=== PATIENT | female | born 1940 | race Caucasian/White ===

== ENCOUNTER 2017-07-29 12:50 | Emergency (ER) | payer MEDICARE, OTHER ==
--- NOTE | 2017-07-29 13:42 | XRAY Report ---
Procedure Date: 07/29/2017 Accession Number: [id number] / [id number] Procedure: XR - Shoulder 3 View LT CPT Code: FULL RESULT: EXAM: LEFT SHOULDER RADIOGRAPHY, 3 VIEWS EXAM DATE: 07/29/2017 01:30 PM. CLINICAL HISTORY: 77-year-old female post fall injuring left shoulder. Shoulder pain. COMPARISON: None. TECHNIQUE: AP, Grashey and Y views. FINDINGS: Bones: Comminuted fracture left humeral head and neck with displaced lateral fracture and displaced and angulated fracture of the left humeral neck. Osseous structures otherwise intact. Joints: Glenohumeral joint appears normal. Mild elevation of the distal clavicle in the AC joint region. Joint space otherwise normal. Soft tissues: The visualized hemithorax is unremarkable. No soft tissue swelling. IMPRESSION: Comminuted displaced of the left humeral head and neck. Slight widening of the left AC joint with mild elevation of the distal left clavicle suggesting possible ligamentous disruption. RADIA
--- NOTE | 2017-07-29 14:45 | ED Physician Documentation ---
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) Timing - details: Abrupt onset, Still present Associated symptoms: No: Weakness, Numbness Contributing factors: No: Anticoagulated, Prior ortho surgery Similar symptoms before: Has not had sx before Recently seen: Not recently seen Review of Systems Cardiac: denies: Chest pain / pressure GI: denies: Abdominal Pain Musculoskeletal: reports: Extremity pain (left shoulder) Neurologic: denies: Focal weakness, Numbness, Confused, Altered mental status, Headache, Head injury PD PAST MEDICAL HISTORY - Past Medical History Endocrine/Autoimmune: None Musculoskeletal: None - Present Medications Home Medications: Ambulatory Orders Medication Instructions Recorded Confirmed Methocarbamol [Robaxin] 500 mg PO Q6H PRN #25 tablet 07/29/17 Tramadol HCl 50 mg PO Q6H PRN #20 tablet 07/29/17 - Allergies Allergies/Adverse Reactions: Allergies Allergy/AdvReac Type Severity Reaction Status Date / Time No Known Drug Allergies Allergy Verified 07/29/17 12:59 PD ED PE NORMAL - Vitals Vital signs reviewed: Yes - General General: Alert and oriented X 3, Well developed/nourished, Other (appears uncomfortable, with guarding motion of right arm to her side. ) - HEENT HEENT: Atraumatic - Cardiac Cardiac: RRR, No murmur - Respiratory Respiratory: Clear bilaterally - Abdomen Abdomen: Soft, Non tender - Derm Derm: Normal color, Warm and dry - Extremities Extremities: Other (left shoulder with tenderness proximal humerus. No bruising but some swelling in that area. ) - Neuro Neuro: No motor deficit, No sensory deficit (at wrist/fingers. ) Results - Vitals Vitals: Oxygen O2 Source Room air - Rads (name of study) left shoulder Radiology: Prelim report reviewed, EMP read contemporaneously (proximal humeral fracture with secondary fracture of greater tubercle.) PD MEDICAL DECISION MAKING - ED course Complexity details: reviewed results, considered differential, d/w patient - Sepsis Event Vital Signs: Oxygen O2 Source Room air Departure - Departure Disposition: 01 Home, Self Care Clinical Impression: Accidental fall Qualifiers: Encounter type: initial encounter Qualified Code(s): W19.XXXA - Unspecified fall, initial encounter Closed fracture of left proximal humerus Qualifiers: Encounter type: initial encounter Fracture morphology: other fracture Fracture alignment: displaced Qualified Code(s): S42.292A - Other displaced fracture of upper end of left humerus, initial encounter for closed fracture Condition: Stable Record reviewed to determine appropriate education?: Yes Instructions: ED Fx Upper Ext Follow-Up: Jonathan Waggoner MD [Provider Admit Priv/Credential] - Prescriptions: Methocarbamol [Robaxin] 500 mg PO Q6H PRN #25 tablet PRN Reason: Spasms Tramadol HCl 50 mg PO Q6H PRN #20 tablet PRN Reason: Pain Comments: Use Aleve 2 tablets twice daily for the next 7-10 days. Also take Tylenol 650 mg 3-4 times a day for the next 7-10 days as well. These can be both used for the pain. Use the sling for the shoulder to keep it rested and in position. Call orthopedic office tomorrow for an appointment about a week from now for follow-up. They will want to check the alignment of it at that point and see if it is in better position to allow just continued use of the sling for healing. Occasionally this may need surgery for repair but typically not. You can add methocarbamol muscle relaxant for spasms of the shoulder as that will contribute to the pain. If you do need stronger medicine, you can try tramadol which is a narcotic-like medication but not truly narcotic. Discharge Date/Time: 07/29/17 16:12
[2017-07-29] MEDS ORDERED: ACETAMINOPHEN 325 MG TABLET PO STA (15:06)
[2017-07-29] MEDS ORDERED: METHOCARBAMOL 500 MG TABLET PO STA (15:06)
[2017-07-29 15:39] VITALS: BP 155/88
== END 2017-07-29 16:12 | disposition home or self-care (01) ==
LOC: ED 12:50
DX: S42.292A Other displaced fracture of upper end of left humerus, initial encounter for closed fracture (principal); W01.0XXA Fall on same level from slipping, tripping and stumbling without subsequent striking against object, initial encounter; Y93.K1 Activity, walking an animal; Y92.488 Other paved roadways as the place of occurrence of the external cause
CPT/HCPCS: 73030; 99283; A9270

== ENCOUNTER 2019-10-26 14:02 | Emergency (ER) | payer MEDICARE ==
--- NOTE | 2019-10-26 15:57 | ED Physician Documentation ---
History of Present Illness - Stated complaint Stated Complaint: BACK PAIN - Chief complaint Chief Complaint: Back Pain - History obtained from History obtained from: Patient - History of Present Illness Timing: Prior to arrival, How many weeks ago (3) - Additonal information Additional information: 79-year-old female presents to the emergency department for evaluation of right sided posterior thoracic back pain. Pain began about 3 weeks ago when she picked up her 60 pound dog. Initially it was quite painful but she was able to move through it. She reports that she is also recently been climbing ladders and stretching to pick [employer]. She has pain that typically radiates from the right posterior trapezius area down the back. She has had no cough or fevers. No weight loss. No dyspnea. She has been taking aspirin which helps for pain. She has not seen a primary care doctor. She is worried that she may have a rib fracture though she denies any falls or trauma. Review of Systems Constitutional: reports: Reviewed and negative Eyes: reports: Reviewed and negative Ears: reports: Reviewed and negative Nose: reports: Reviewed and negative Throat: reports: Reviewed and negative Cardiac: reports: Reviewed and negative Respiratory: reports: Reviewed and negative GI: reports: Reviewed and negative Skin: reports: Reviewed and negative Musculoskeletal: reports: Back pain. denies: Extremity pain, Joint pain, Extremity swelling, Joint swelling, Pain with weight bearing Neurologic: denies: Generalized weakness, Focal weakness Psychiatric: denies: Depressed Endocrine: denies: Polydypsia PD PAST MEDICAL HISTORY - Past Medical History Endocrine/Autoimmune: None Musculoskeletal: None - Present Medications Home Medications: Ambulatory Orders Medication Instructions Recorded Confirmed Tramadol HCl 50 mg PO Q6H PRN #20 tablet 07/29/17 methocarbamoL [Robaxin] 500 mg PO Q6H PRN #25 tablet 07/29/17 Acetaminophen [Tylenol] 650 mg PO Q6H PRN #30 tab 10/26/19 Methocarbamol [Robaxin-750] 750 mg PO BID #15 tablet 10/26/19 - Allergies Allergies/Adverse Reactions: Allergies Allergy/AdvReac Type Severity Reaction Status Date / Time No Known Drug Allergies Allergy Verified 10/26/19 14:14 PD ED PE EXPANDED - General General: Alert, No acute distress, Well developed/nourished - Cardiac Cardiac: Regular Rate, Radial strong equal, Cap refill < 2 sec - Respiratory Respiratory: Clear to ausultation davian. No: Distress, Labored - Abdomen Abdomen: Normal Bowel sounds. No: Tender to palpation - Back Back: Soft tissue tenderness, Limited ROM, Other (tenderness right trapexius muscle body that extends from just abive the scapula to the lumbar area. NO midlien spinous process tenderness. Reduced ROM secodnary to pain). No: Vertebral tenderness, CVA TTP right, CVA TTP left - Derm Derm: Normal color, Warm and dry - Neuro Neuro: Alert and Oriented X 3. No: Confused, Disoriented - GCS Eye Opening: Spontaneous Motor: Obeys Commands Verbal: Oriented Total: 15 Results - Vitals Vitals: Vital Signs - 24 hr 10/26/19 14:08 Heart Rate 74 Respiratory 17 Rate Blood Pressure 148/92 H O2 Saturation 98 Oxygen O2 Source Room air - Rads (name of study) cxr Radiology: Final report received (Subtle left basilar radiopacity suspicious for aspiration/infection. Short interval follow-up is recommended to ensure resolution.) rib xray Radiology: Final report received (No displaced rib fracture is visualized. No bony abnormalities) PD MEDICAL DECISION MAKING - ED course Complexity details: reviewed results, re-evaluated patient, considered differential, d/w patient ED course: 79-year-old female presents to the emergency department for evaluation of right posterior thoracic back pain. This began about 3 weeks ago after she picked up her heavy dog but was also exacerbated by climbing ladders and picking figs. She has no midline spinous process tenderness. My suspicion for an occult fracture in the thoracic spine is lower. However she is exceedingly concerned that based on the location of the pain that she could have a rib fracture. - Rib series does not show any acute fracture. A chest x-ray does suggest a possible early left lower pneumonia/aspiration event. I discussed the chest x- ray findings with the patient. She denies any aspiration events cough congestion or fever. I did offer her a trial of antibiotics for possible early pneumonia but she declined them at this time. She states that she will follow- up with her primary doctor for repeat imaging in 2 to 3 weeks. She was told that if her symptoms change, she develops a cough or fever she is to return to the ER for second look. - I will recommend short course of methocarbamol as a muscle relaxer and Tylenol for analgesia. Departure - Departure Disposition: 01 Home, Self Care Clinical Impression: Strain of right trapezius muscle Qualifiers: Encounter type: initial encounter Qualified Code(s): S46.811A - Strain of other muscles, fascia and tendons at shoulder and upper arm level, right arm, initial encounter Condition: Stable Record reviewed to determine appropriate education?: Yes Instructions: ED Spasm Back No Trauma Follow-Up: Arden German MD [Primary Care Provider] - Prescriptions: Methocarbamol [Robaxin-750] 750 mg PO BID #15 tablet Acetaminophen [Tylenol] 650 mg PO Q6H PRN #30 tab PRN Reason: Pain Comments: Rebeca it looks like you pulled your trapezius muscle on the right side of your back. I would like you to take the Tylenol as needed for pain. I also prescribed a small amount of a muscle relaxer. Please be cautious using this it may make you sleepy. The chest x-ray did suggest that you may have a mild early pneumonia in your left lower lung. I would like you to discuss this with your primary care doctor. You should have a repeat x-ray done in 2 to 3 weeks to ensure that this has cleared. You declined antibiotics today however if you develop a cough, have fevers or difficulty breathing please return to [facility]
--- NOTE | 2019-10-26 16:53 | XRAY Report ---
PROCEDURE: Chest 2 View X-Ray INDICATIONS: cough TECHNIQUE: 2 view(s) of the chest. COMPARISON: None. FINDINGS: Surgical changes and devices: None. Lungs and pleura: There may be subtle airspace opacities at the lingular base versus overlapping morgan st and bone shadows. The lungs are otherwise clear. No pleural effusion or pneumothorax. Mediastinum: Mediastinal contours are normal. Heart size is normal. Bones and chest wall: No suspicious bony abnormalities. Soft tissues appear unremarkable. IMPRESSION: Subtle left basilar radiopacity suspicious for aspiration/infection. Short interval foll ow-up is recommended to ensure resolution. Reviewed by: Kasey Aguero MD on 10/26/2019 4:52 PM PDT Approved by: Kasey Aguero MD on 10/26/2019 4:52 PM PDT Station ID: [id number]
--- NOTE | 2019-10-26 16:54 | XRAY Report ---
PROCEDURE: Ribs 2 View RT INDICATIONS: posterior rib pain; r/o fracture TECHNIQUE: 3 views of the right ribs were acquired. COMPARISON: None FINDINGS: Surgical changes and devices: None. Bones and chest wall: No fractures or dislocations. No suspicious bony lesions. Overlying soft tis sues appear unremarkable. Lungs and pleura: The visualized lung appears clear. No pleural effusions or pneumothorax are visib le. IMPRESSION: No displaced rib fractures visualized. No bony abnormalities. Reviewed by: Kasey Aguero MD on 10/26/2019 4:53 PM PDT Approved by: Kasey Aguero MD on 10/26/2019 4:53 PM PDT Station ID: [id number]
[2019-10-26 17:12] VITALS: BP 156/93
== END 2019-10-26 17:21 | disposition home or self-care (01) ==
LOC: ED 14:02
DX: S46.811A Strain of other muscles, fascia and tendons at shoulder and upper arm level, right arm, initial encounter (principal); X50.0XXA Overexertion from strenuous movement or load, initial encounter; X50.1XXA Overexertion from prolonged static or awkward postures, initial encounter
CPT/HCPCS: 71046; 99283; 99284

== ENCOUNTER 2020-10-19 13:12 | Emergency (ER) | payer MEDICARE ==
[2020-10-19 13:19] VITALS: BP 129/97
--- NOTE | 2020-10-19 13:52 | ED Physician Documentation ---
PD HPI SKIN - Stated complaint Stated Complaint: R HAND ABCESS - Chief complaint Chief Complaint: Wound - History obtained from History obtained from: Patient - History of Present Illness Timing - onset: How many weeks ago (2) Timing - duration: Weeks (2) Timing - details: Gradual onset, Still present Location: RUE (index finger) Quality / character: Painful, Discolored, Raised, Swelling. No: Draining Associated symptoms: No: Fever Contributing factors: Other (thorn to finger 2 months ago) Similar symptoms before: Diagnosis (abcess) Recently seen: Not recently seen - Additional information Additional information: Previously well 80-year-old female on no medications comes to the emergency department today with a swelling to her right index finger that has been present for almost 2 weeks and was preceded by a minor injury to her finger while gardening where she brushed up against a thorn. She states she cleaned the area out that she did not have retained foreign in the area and this happened about 2 months ago. She developed some soreness and then the swelling abruptly happened about 2 weeks ago. She feels that there is some fluid underneath the skin and she has a bit of pain if she tries to flex and extend the finger. She is not had fever with this she has not had anything drained out of the finger. She states that the prior case she had a similar situation and when she soaked it in Epson salts it broke open and resolved. Review of Systems Constitutional: denies: Fever Eyes: denies: Decreased vision Ears: denies: Ear pain Nose: denies: Congestion Throat: denies: Sore throat Respiratory: denies: Cough GI: denies: Vomiting Skin: reports: Lesions Musculoskeletal: reports: Extremity pain. 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 HEENT: None Psych: None Musculoskeletal: None, Other Derm: None - Past Surgical History Past Surgical History: No - Present Medications Home Medications: Ambulatory Orders Medication Instructions Recorded Confirmed Sulfamethox/Trimeth 800/160 1 each PO BID #14 tablet 10/19/20 [Bactrim Ds] - Allergies Allergies/Adverse Reactions: Allergies Allergy/AdvReac Type Severity Reaction Status Date / Time No Known Drug Allergies Allergy Verified 10/26/19 14:14 - Social History Does the pt smoke?: No Smoking Status: Never smoker Does the pt drink ETOH?: No Does the pt have substance abuse?: No - Immunizations Immunizations are current?: Yes PD ED PE NORMAL - Vitals Vital signs reviewed: Yes (hypertensive ) - General General: Alert and oriented X 3, No acute distress, Well developed/nourished - HEENT HEENT: Atraumatic, PERRL, EOMI - Respiratory Respiratory: No respiratory distress - Derm Derm: Normal color, Warm and dry, No rash, Other (swelling, tenderness and bruising to the volar proximal 2nd digit right hand ) - Extremities Extremities: Other (To the volar surface of the proximal second phalange of the right hand there is a swelling approximately 2 cm round and a centimeter tall that is fluctuant in the middle there is no surrounding erythema there is the violaceous hue of a bruise) - Neuro Neuro: Alert and oriented X 3, certified first assistant 2-12 intact, No motor deficit, No sensory deficit, Normal speech Eye Opening: Spontaneous Motor: Obeys Commands Verbal: Oriented GCS Score: 15 - Psych Psych: Normal mood, Normal affect Results - Vitals Vitals: Vital Signs - 24 hr 10/19/20 13:14 Temperature 36.5 C Heart Rate 64 Respiratory 16 Rate Blood Pressure 129/97 H O2 Saturation 100 Oxygen O2 Source Room air Procedures - Abscess I&D (location) right index Preparation: Chlorhexadine Incision: Needle aspiration, Purulent drainage, Culture obtained Other: Pt tolerated well, Dressing applied, Antibiotic prescribed PD MEDICAL DECISION MAKING - ED course Complexity details: considered differential, d/w patient ED course: 80-year-old female with a abscess to the right index finger volar surface presented with what appeared to be bruised tissue with some fluctuance to the center of it. There was no erythema surrounding it and this ended up being an abscess. I was able to aspirate about 4 cc of pus out of it. This was cultured the swelling deflated completely. Patient tolerated this well. We will place her on some antibiotic with culture pending and she is instructed to use a warm compress 2-3 times per day Departure - Departure Disposition: 01 Home, Self Care Clinical Impression: Abscess of right index finger Condition: Stable Instructions: ED Abscess IandD Follow-Up: Arden German MD [Primary Care Provider] - Prescriptions: Sulfamethox/Trimeth 800/160 [Bactrim Ds] 1 each PO BID #14 tablet Comments: I ring, a culture of the fluid we obtained from your finger is pending and should be available in 2 to 3 days. If we find that the organism in the abscess is resistant to the antibiotic we put you on we will call you with a new antib iotic. Use a warm compress to the area 2-3 times per day for about 10 minutes each and encourage any drainage.
[2020-10-19] MEDS ORDERED: BACITRACIN ZINC OINT 1 PACKET TOP STA (14:05)
== END 2020-10-19 14:14 | disposition home or self-care (01) ==
LOC: ED 13:12
DX: L02.511 Cutaneous abscess of right hand (principal)
CPT/HCPCS: 10160; 87070; 87205; 99282; 99284; A9270

== ENCOUNTER 2020-10-26 14:31 | Emergency (ER) | payer MEDICARE ==
--- NOTE | 2020-10-26 15:23 | ED Physician Documentation ---
PD HPI UPPER EXT INJURY - Stated complaint Stated Complaint: RT INDEX FINGER WOUND - Chief complaint Chief Complaint: Ext Problem - History obtained from History obtained from: Patient - Additonal information Additional information: 1 year ago had thorn injury to R index finger. Increased swelling last week with needle aspiration done and rx bactrim. No growth from culture. 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 HEENT: None Psych: None Musculoskeletal: None, Other Derm: None - Past Surgical History Past Surgical History: No - Present Medications Home Medications: Ambulatory Orders Medication Instructions Recorded Confirmed Sulfamethox/Trimeth 800/160 1 each PO BID #14 tablet 10/19/20 [Bactrim Ds] cephALEXin [Keflex] 500 mg PO Q6H #28 cap 10/26/20 - Allergies Allergies/Adverse Reactions: Allergies Allergy/AdvReac Type Severity Reaction Status Date / Time No Known Drug Allergies Allergy Verified 10/26/20 14:45 - Social History Does the pt smoke?: No Smoking Status: Never smoker Does the pt drink ETOH?: No Does the pt have substance abuse?: No - Immunizations Immunizations are current?: Yes PD ED PE NORMAL - Vitals Vital signs reviewed: Yes - General General: Alert and oriented X 3, No acute distress - HEENT HEENT: PERRL, EOMI - Neck Neck: No bony TTP - Extremities Extremities: Other (There is large pointed abscess encompassing most of the palmar surface of the proximal phalanx of the right index finger with mild surrounding cellulitis. That said there is no evidence of flexor tenosynovitis, no pain with palpation along the flexor tendon, it is not held in flexion ) - Neuro Neuro: Alert and oriented X 3, Normal speech Results - Vitals Vitals: Vital Signs - 24 hr 10/26/20 10/26/20 14:38 16:01 Temperature 36.4 C L 36.5 C Heart Rate 74 73 Respiratory 16 16 Rate Blood Pressure 141/74 H 140/78 H O2 Saturation 99 99 Oxygen O2 Source Room air Procedures - Abscess I&D (location) R 2nd finger Preparation: Lidocaine 1% (Median nerve block was done in standard fashion with lidocaine with epinephrine with excellent anesthesia) Incision: Incised with scalpel, Purulent drainage (Thick purulent drainage which explains the recurrence, the drainage was so thick I doubt it could have been retrieved through a needle aspiration.), Loculations broken, Packed (With quarter inch packing), Culture obtained Other: Pt tolerated well Departure - Departure Disposition: 01 Home, Self Care Clinical Impression: Abscess of right index finger Condition: Good Record reviewed to determine appropriate education?: Yes Instructions: ED Abscess IandD Prescriptions: cephALEXin [Keflex] 500 mg PO Q6H #28 cap Comments: We are performing a wound culture, the results should be done in 48-72 hours. If antibiotic change is necessary we will call you. Return if worse in the meantime, especially if you develop increased pain, fevers, cannot keep down the medication. Otherwise follow-up with your physician in approximately 2 Days for packing removal and recheck. Discharge Date/Time: 10/26/20 16:02
[2020-10-26 16:02] VITALS: BP 140/78
== END 2020-10-26 16:02 | disposition home or self-care (01) ==
LOC: ED 14:31
DX: L02.511 Cutaneous abscess of right hand (principal)
CPT/HCPCS: 26010; 87070; 87205

== ENCOUNTER 2020-10-28 14:00 | Emergency (ER) | payer MEDICARE ==
[2020-10-28 14:21] VITALS: BP 154/77
--- NOTE | 2020-10-28 15:21 | ED Physician Documentation ---
History of Present Illness - Stated complaint Stated Complaint: STITCH REMOVAL - Chief complaint Chief Complaint: Laceration - History obtained from History obtained from: Patient - Additonal information Additional information: Patient comes emergency department for chief complaint of packing removal from index finger. Patient states that she was seen here a couple of times in the last couple weeks for right index finger infection which turned out to be an abscess. I&D was performed 2 days ago with packing placed. Patient is here to have the packing removed. She states that she has been on antibiotics for 2 days now and does not feel that the area is worsening. In fact, it seems to be doing better. No redness or swelling spreading progressively away from the wound. No fevers. No noticeable drainage in the last 24 hours. Review of Systems Ten Systems: 10 systems reviewed and negative Constitutional: reports: Reviewed and negative Eyes: reports: Reviewed and negative Ears: reports: Reviewed and negative Nose: reports: Reviewed and negative Throat: reports: Reviewed and negative Cardiac: reports: Reviewed and negative Respiratory: reports: Reviewed and negative GI: reports: Reviewed and negative : reports: Reviewed and negative Skin: reports: Other (abscess finger) Musculoskeletal: reports: Reviewed and negative Neurologic: reports: Reviewed and negative Psychiatric: reports: Reviewed and negative Endocrine: reports: Reviewed and negative Immunocompromised: reports: Reviewed and negative PD PAST MEDICAL HISTORY - Past Medical History Cardiovascular: None Respiratory: None Neuro: None Endocrine/Autoimmune: None GI: None 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 : None HEENT: None Psych: None Musculoskeletal: None, Other Derm: None - Past Surgical History Past Surgical History: No - Present Medications Home Medications: Ambulatory Orders Medication Instructions Recorded Confirmed Sulfamethox/Trimeth 800/160 1 each PO BID #14 tablet 10/19/20 10/28/20 [Bactrim Ds] cephALEXin [Keflex] 500 mg PO Q6H #28 cap 10/26/20 10/28/20 - Allergies Allergies/Adverse Reactions: Allergies Allergy/AdvReac Type Severity Reaction Status Date / Time No Known Drug Allergies Allergy Verified 10/28/20 14:17 - Social History Does the pt smoke?: No Smoking Status: Never smoker Does the pt drink ETOH?: No Does the pt have substance abuse?: No - Immunizations Immunizations are current?: Yes PD ED PE NORMAL - Vitals Vital signs reviewed: Yes - General General: Alert and oriented X 3, No acute distress, Well developed/nourished - HEENT HEENT: Atraumatic, PERRL, EOMI, Moist mucous membranes - Neck Neck: Supple, no meningeal sign - Cardiac Cardiac: Strong equal pulses - Respiratory Respiratory: No respiratory distress - Derm Derm: Normal color, Warm and dry, No rash, Other (Open 5 mm wound on flexor aspect of right index finger over proximal phalanx. No foreign body. No in duration or erythema. No expressible drainage) - Extremities Extremities: No deformity, Other (Moderate edema without induration of proximal right index finger.) - Neuro Neuro: Alert and oriented X 3 - Psych Psych: Normal mood, Normal affect Results - Vitals Vitals: Vital Signs - 24 hr 10/28/20 14:17 Temperature 36.4 C L Heart Rate 63 Respiratory 16 Rate Blood Pressure 154/77 H O2 Saturation 100 Oxygen O2 Source Room air PD MEDICAL DECISION MAKING - ED course Complexity details: considered differential, d/w patient ED course: Packing was removed in the ED. Wound appeared to be healing well without expressible drainage or evidence of cellulitis or further abscess. We discussed wound care at home the need for the patient to continue her antibiotics. We have discussed the usual indications for return. Departure - Departure Disposition: 01 Home, Self Care Clinical Impression: Abscess packing removal Condition: Stable Instructions: ED Abscess IandD Comments: You may let water run over the wound, but please do not immerse the wound in water until it has scabbed over. Please continue your antibiotics as prescribed.
== END 2020-10-28 15:26 | disposition home or self-care (01) ==
LOC: ED 14:00
DX: S61.200D Unspecified open wound of right index finger without damage to nail, subsequent encounter (principal)
CPT/HCPCS: 99281

== ENCOUNTER 2021-10-30 12:58 | Emergency (ER) | payer MEDICARE ==
[2021-10-30 13:10] VITALS: BP 150/99
--- NOTE | 2021-10-30 13:12 | ED Physician Documentation ---
PD HPI LOWER EXT INJURY - Stated complaint Stated Complaint: ANKLE PX - Chief complaint Chief Complaint: Ext Problem - History obtained from History obtained from: Patient - Additional information Additional information: 81-year-old woman was walking in a field the other day and there was a rut in her foot and ankle went in it. She popped her foot and ankle very hard and now has pain but only when walking. Declines pain medication for. No other injuries. 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 : None HEENT: None Psych: None Musculoskeletal: None, Other Derm: None - Past Surgical History Past Surgical History: No - Present Medications Home Medications: Ambulatory Orders Medication Instructions Recorded Confirmed No Known Home Medications 10/30/21 10/30/21 - Allergies Allergies/Adverse Reactions: Allergies Allergy/AdvReac Type Severity Reaction Status Date / Time No Known Drug Allergies Allergy Verified 10/28/20 14:17 - Social History Does the pt smoke?: No Smoking Status: Never smoker Does the pt drink ETOH?: No Does the pt have substance abuse?: No - Immunizations Immunizations are current?: Yes PD ED PE NORMAL - Vitals Vital signs reviewed: Yes - General General: Alert and oriented X 3, No acute distress - Extremities Extremities: Other (Mild tenderness over the lateral left ankle with significant swelling there. No proximal fibular tenderness. Significant tenderness over the proximal fifth metatarsal.) - Neuro Neuro: Alert and oriented X 3, Normal speech - Psych Psych: Normal mood, Normal affect Results - Vitals Vitals: Vital Signs - 24 hr 10/30/21 13:07 Temperature 37.0 C Heart Rate 75 Respiratory 18 Rate Blood Pressure 150/99 H O2 Saturation 99 Oxygen O2 Source Room air - Rads (name of study) X-rays of the left foot and ankle are negative. Radiology: EMP read contemporaneously Departure - Departure Disposition: 01 Home, Self Care Clinical Impression: Accidental fall Qualifiers: Encounter type: initial encounter Qualified Code(s): W19.XXXA - Unspecified fall, initial encounter Sprain of left foot Qualifiers: Encounter type: initial encounter Qualified Code(s): S93.602A - Unspecified sprain of left foot, initial encounter Condition: Good Record reviewed to determine appropriate education?: Yes Instructions: ED Sprain Foot, ED Boot Aircast Walker Comments: Tylenol as needed for pain per package instructions. Return for new or worsening symptoms. Follow-up with your doctor for recheck as needed in 1 week if not improved. Wear the boot as needed for comfort but you do not have to wear it religiously. Discharge Date/Time: 10/30/21 14:40
--- NOTE | 2021-10-30 14:09 | XRAY Report ---
PROCEDURE: Ankle 3 View LT INDICATIONS: Foot/ankle inj TECHNIQUE: 3 views of the ankle were acquired. COMPARISON: None FINDINGS: Bones: No fractures or dislocations. Ankle mortise is normally aligned. No suspicious bony lesions . Osteopenia Soft tissues: No tibiotalar joint effusion. Achilles tendon appears normal. Mild soft tissue swell ing IMPRESSION: Mild soft tissue swelling without fracture or foreign body Reviewed by: Bryan Vázquez MD on 10/30/2021 1:08 PM [facility] Approved by: Bryan Vázquez MD on 10/30/2021 1:08 PM [facility] Station ID: [id number]
--- NOTE | 2021-10-30 14:14 | XRAY Report ---
PROCEDURE: Foot 3 View LT INDICATIONS: Foot/ankle inj TECHNIQUE: 3 views of the foot were acquired. COMPARISON: None FINDINGS: Bones: No fractures or dislocations. No suspicious bony lesions. Generalized decreased osseous min eralization present. Soft tissues: No tibiotalar joint effusion. Achilles tendon appears normal. IMPRESSION: Osteopenia without fracture or foreign body Reviewed by: Bryan Vázquez MD on 10/30/2021 1:13 PM [facility] Approved by: Bryan Vázquez MD on 10/30/2021 1:13 PM [facility] Station ID: [id number]
== END 2021-10-30 14:40 | disposition home or self-care (01) ==
LOC: ED 12:58
DX: S93.602A Unspecified sprain of left foot, initial encounter (principal); X50.1XXA Overexertion from prolonged static or awkward postures, initial encounter; Y93.01 Activity, walking, marching and hiking; Y92.89 Other specified places as the place of occurrence of the external cause
CPT/HCPCS: 99282; 99283

== ENCOUNTER 2021-12-29 13:27 | Emergency (ER) | payer MEDICARE ==
[2021-12-29 13:35] VITALS: BP 160/80
== END 2021-12-29 13:36 | disposition left against medical advice (07) ==
LOC: ED 13:27
DX: Z53.29 Procedure and treatment not carried out because of patient's decision for other reasons (principal)

== ENCOUNTER 2021-12-31 11:49 | Emergency (ER) | payer MEDICARE ==
[2021-12-31 12:26] VITALS: BP 126/68
--- NOTE | 2021-12-31 15:39 | ED Physician Documentation ---
PD HPI BACK PAIN - Stated complaint Stated Complaint: BACK/RIB CAGE PX - Chief complaint Chief Complaint: Back Pain - History obtained from History obtained from: Patient - Additional information Additional information: This is an 81-year-old woman who about a month ago was lopping branches off of her fig tree and it was difficult and she has developed rib pain related to same. There was no fall per se but the rib pain is persistent in the ribs on the lower part of both sides. She saw her chiropractor who recommended imaging. She made an appoint with her primary care physician but it has not happened yet. She denies shortness of breath but does have pain with deep breathing. 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 HEENT: None Psych: None Musculoskeletal: None, Other Derm: None - Past Surgical History Past Surgical History: No - Present Medications Home Medications: Ambulatory Orders Medication Instructions Recorded Confirmed No Known Home Medications 10/30/21 10/30/21 - Allergies Allergies/Adverse Reactions: Allergies Allergy/AdvReac Type Severity Reaction Status Date / Time No Known Drug Allergies Allergy Verified 12/31/21 12:26 - Social History Does the pt smoke?: No Smoking Status: Never smoker Does the pt drink ETOH?: No Does the pt have substance abuse?: No - Immunizations Immunizations are current?: Yes PD ED PE NORMAL - Vitals Vital signs reviewed: Yes - General General: Alert and oriented X 3, No acute distress - HEENT HEENT: PERRL, EOMI - Neck Neck: Supple, no meningeal sign, No bony TTP - Cardiac Cardiac: RRR, No murmur - Respiratory Respiratory: No respiratory distress, Other (Bilateral lower rib tenderness, no midline spinal tenderness. Lungs are clear with slight wincing with deep breathing.) - Neuro Neuro: Alert and oriented X 3, Normal speech Results - Vitals Vitals: Vital Signs - 24 hr 12/31/21 12:20 Temperature 36.3 C L Heart Rate 73 Respiratory 16 Rate Blood Pressure 126/68 O2 Saturation 98 Oxygen O2 Source Room air PD MEDICAL DECISION MAKING - ED course ED course: 81-year-old woman has persistent rib pain after minor trauma a month ago. Differential diagnosis is broad and includes a variety of musculoskeletal injuries but also metastatic disease and I recommended a CT of the chest to evaluate for same. After much discussion she decided on no imaging today and will follow-up with her primary care physician. Departure - Departure Disposition: 01 Home, Self Care Clinical Impression: Rib injury Condition: Good Record reviewed to determine appropriate education?: Yes Instructions: ED Contusion Chest Wall Comments: You were seen today for persistent rib pain after minor trauma. I have recommended imaging including a CT scan and you prefer to follow-up with your primary care physician for further evaluation and treatment. Do so at your next available appointment. Return for new or worsening symptoms.
== END 2021-12-31 15:54 | disposition home or self-care (01) ==
LOC: ED 11:49
DX: S29.9XXA Unspecified injury of thorax, initial encounter (principal); X50.9XXA Other and unspecified overexertion or strenuous movements or postures, initial encounter; Y93.H2 Activity, gardening and landscaping; Y92.007 Garden or yard of unspecified non-institutional (private) residence as the place of occurrence of the external cause
CPT/HCPCS: 99282; 99284

== ENCOUNTER 2022-01-10 08:00 | Outpatient (CLI) | payer MEDICARE ==
--- NOTE | 2022-01-10 16:28 | XRAY Report ---
PROCEDURE: Chest 2 View X-Ray INDICATIONS: ABNORMAL BREATH SOUNDS TECHNIQUE: 2 views of the chest were acquired. COMPARISON: 10/26/2019 FINDINGS: Surgical changes and devices: None. Lungs and pleura: No pleural effusions or pneumothorax. Lungs are clear. Mediastinum: The aorta is prominent and tortuous. The cardiac contours are within normal limits. Bones and chest wall: No suspicious bony abnormalities. Age-appropriate degenerative changes are see n. There is accentuated thoracic kyphosis. Soft tissues appear unremarkable. IMPRESSION: No focal infiltrates are seen. Reviewed by: Jovanni Sidhu MD on 01/10/2022 3:27 PM [facility] Approved by: Jovanni Sidhu MD on 01/10/2022 3:27 PM [facility] Station ID: [id number]
== END 2022-01-10 08:01 | disposition home or self-care (01) ==
LOC: DI.S 08:00
PROVIDERS: ATTEND Nurse Practitioner Family
DX: R09.89 Other specified symptoms and signs involving the circulatory and respiratory systems (principal)

== ENCOUNTER 2022-02-13 10:39 | Emergency (ER) | payer MEDICARE ==
[2022-02-13 11:17] VITALS: BP 135/104
== END 2022-02-13 11:53 | disposition left against medical advice (07) ==
LOC: ED 10:39
DX: Z53.29 Procedure and treatment not carried out because of patient's decision for other reasons (principal)

== ENCOUNTER 2022-02-21 14:33 | Outpatient (CLI) | payer MEDICARE | END 2022-02-21 14:34 | disposition critical access hospital (66) | LOC: EMS 14:33 | DX: R00.2 Palpitations (principal) | CPT/HCPCS: A0425; A0429 ==

== ENCOUNTER 2022-02-21 15:09 | Emergency (ER) | payer MEDICARE ==
[2022-02-21 16:03] LABS: BASOPHILS # (AUTO) 0.1 10^3/uL (0.0-0.1); BASOPHILS % (AUTO) 0.8 %; EOSINOPHILS % (AUTO) 0.5 %; HCT - HEMATOCRIT 38.4 % (37.0-47.0); HGB - HEMOGLOBIN 12.6 g/dL (12.0-16.0); LYMPHOCYTES % (AUTO) 12.1 %; MEAN CORPUSCULAR HEMOGLOBIN 31.2 pg (27.0-31.0); MEAN CORPUSCULAR HGB CONC 32.8 g/dL (32.0-36.0); MEAN PLATELET VOLUME 8.9 fL (7.9-10.8); MONOCYTES % (AUTO) 12.3 %; NEUTROPHILS # (AUTO) 5.9 10^3/uL (1.5-6.6); PLT - PLATELET COUNT 305 10^3/uL (130-450); RED BLOOD COUNT 4.04 10^6/uL (4.20-5.40); WHITE BLOOD COUNT 7.9 x10^3/uL (4.8-10.8)
[2022-02-21 16:15] LABS: ALBUMIN 3.7 g/dL (3.2-5.5); ALBUMIN/GLOBULIN RATIO 1.2 (1.0-2.2); BILIRUBIN,TOTAL 0.7 mg/dL (0.2-1.0); CALCIUM 9.3 mg/dL (8.5-10.3); CREATININE 0.8 mg/dL (0.4-1.0); POTASSIUM 4.2 mmol/L (3.5-5.0); TOTAL PROTEIN 6.8 g/dL (6.7-8.2)
--- NOTE | 2022-02-21 16:18 | ED Physician Documentation ---
History of Present Illness - Stated complaint Stated Complaint: HEART PALP - Chief complaint Chief Complaint: Cardiac - History obtained from History obtained from: Patient, EMS - History of Present Illness Pain level max: 0 Pain level now: 0 - Additonal information Additional information: 81-year-old female presents to the emergency department complaining of palpitations. She states this is been ongoing since she was a small child. She relates it to "atrial fibrillation". Unclear if she has ever been actually diagnosed with this or not. She states that today she felt the palpitations more than usual. She also states that over the past several months her ankles have been more swollen at the end of the day but resolves overnight. No chest pain. No shortness of breath. Nothing makes it better or worse. She states that she also had a fall several months ago and has had ongoing back pain since that time. Not worse today. No numbness or tingling. No shortness of breath. No cough. No congestion. Currently asymptomatic. Patient also states that occasionally feed she feels that her mouth is dry even though she is drinking water. Review of Systems Constitutional: denies: Fever, Chills Nose: denies: Rhinorrhea / runny nose, Congestion Throat: denies: Sore throat Cardiac: reports: Palpitations. 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 HEENT: None Psych: None Musculoskeletal: None, Other Derm: None - Past Surgical History Past Surgical History: No - Present Medications Home Medications: Ambulatory Orders Medication Instructions Recorded Confirmed No Known Home Medications 10/30/21 10/30/21 - Allergies Allergies/Adverse Reactions: Allergies Allergy/AdvReac Type Severity Reaction Status Date / Time No Known Drug Allergies Allergy Verified 02/21/22 15:20 - Social History Does the pt smoke?: No Smoking Status: Never smoker Does the pt drink ETOH?: No Does the pt have substance abuse?: No - Immunizations Immunizations are current?: Yes PD ED PE NORMAL - Vitals Vital signs reviewed: Yes - General General: Alert and oriented X 3, No acute distress, Well developed/nourished - HEENT HEENT: PERRL, Moist mucous membranes - Neck Neck: Supple, no meningeal sign - Cardiac Cardiac: RRR, No murmur, Strong equal pulses - Respiratory Respiratory: No respiratory distress, Clear bilaterally - Abdomen Abdomen: Soft, Non tender, Non distended - Derm Derm: Warm and dry, No rash - Extremities Extremities: No edema, No calf tenderness / cord - Neuro Neuro: Alert and oriented X 3 - Psych Psych: Normal mood, Normal affect Results - Vitals Vitals: Vital Signs - 24 hr 02/21/22 02/21/22 02/21/22 15:00 15:17 17:12 Temperature 36.8 C Heart Rate 79 86 80 Respiratory 14 16 15 Rate Blood Pressure 158/100 H 166/104 H 168/101 H O2 Saturation 100 99 100 Oxygen O2 Source Room air - EKG (time done) 1523 Rate: Rate (enter#) (79) Rhythm: NSR [place]: LAD Intervals: Normal MT QRS: Normal Ischemia: Normal ST segments - Labs Labs: Laboratory Tests 02/21/22 02/21/22 02/21/22 15:56 15:56 15:56 WBC 7.9 RBC 4.04 L Hgb 12.6 Hct 38.4 MCV 95.0 MCH 31.2 H MCHC 32.8 RDW 13.0 Plt Count 305 MPV 8.9 Neut # (Auto) 5.9 Lymph # (Auto) 1.0 L Kern # (Auto) 1.0 Eos # (Auto) 0.0 Baso # (Auto) 0.1 Absolute Nucleated RBC 0.00 Nucleated RBC % 0.0 Sodium 137 Potassium 4.2 Chloride 97 L Carbon Dioxide 28 Anion Gap 12.0 BUN 15 Creatinine 0.8 Estimated GFR (MDRD) 69 L Glucose 109 H Calcium 9.3 Total Bilirubin 0.7 AST 43 H ALT 41 Alkaline Phosphatase 73 Troponin I High Sens B-Natriuretic Peptide 131 H Total Protein 6.8 Albumin 3.7 Globulin 3.1 Albumin/Globulin Ratio 1.2 Lipase 46 02/21/22 15:56 WBC RBC Hgb Hct MCV MCH MCHC RDW Plt Count MPV Neut # (Auto) Lymph # (Auto) Kern # (Auto) Eos # (Auto) Baso # (Auto) Absolute Nucleated RBC Nucleated RBC % Sodium Potassium Chloride Carbon Dioxide Anion Gap BUN Creatinine Estimated GFR (MDRD) Glucose Calcium Total Bilirubin AST ALT Alkaline Phosphatase Troponin I High Sens 17.1 H* B-Natriuretic Peptide Total Protein Albumin Globulin Albumin/Globulin Ratio Lipase - Rads (name of study) cxr Radiology: Final report received, See rad report PD Medical Decision Making - ED course Complexity details: reviewed results, re-evaluated patient, considered differential (No ST elevation ME, no aortic dissection, no PE, no tension pneumothorax, no aortic aneurysm), d/w patient ED course: Patient is an 81-year-old female who presents to the emergency department with palpitations intermittently for what sounds like several years, but worsening recently. Her high-sensitivity troponin is minimally elevated, not having any chest pain. No significant lab abnormalities other than a mild elevation of her BNP. No significant edema on exam. Chest x-ray does not show any pulmonary edema. Patient is well-appearing, nontoxic. Afebrile. Recommend that she follow-up with her doctor for a Holter monitor or Zio patch. Patient is ambulating without any difficulty. No hypoxia. No respiratory distress. No evidence of PE. Patient counseled regarding signs and symptoms for which I believe and urgent re-evaluation would be necessary. Patient with good understanding of and agreement to plan and is comfortable going home at this time This document was made in part using voice recognition software. While efforts are made to proofread this document, sound alike and grammatical errors may occur. No arrhythmia on telemetry here Departure - Departure Disposition: 01 Home, Self Care Clinical Impression: Palpitations Condition: Good Instructions: ED Palpitations Comments: Please follow-up with your doctor for further care. Return if you worsen. Your testing today does not show any acute abnormalities. Your doctor may want to perform an echocardiogram to evaluate for any evidence of heart failure. They may want to perform imaging of your spine to exclude any chronic compression fractures from your fall. There is no evidence of fluid buildup in your lungs today. Make sure you are elevating your legs at night. There is no evidence of heart attack today. Discharge Date/Time: 02/21/22 17:38
--- NOTE | 2022-02-21 16:34 | XRAY Report ---
PROCEDURE: Chest 1 View X-Ray INDICATIONS: Chest Pain TECHNIQUE: One view of the chest was acquired. COMPARISON: 01/10/2022, 10/26/2019 FINDINGS: Surgical changes and devices: None. Lungs and pleura: No pleural effusions or pneumothorax. Lungs are clear. Mediastinum: The aorta is prominent and tortuous. The cardiac contours are within normal limits. Bones and chest wall: No suspicious bony lesions. Mild dextroconvex scoliotic curvature is seen. Age -appropriate degenerative changes are seen. There is a remote left humeral neck fracture. Overlying soft tissues appear unremarkable. IMPRESSION: No acute cardiopulmonary process is seen. Remote left humeral neck fracture incidentally noted. Reviewed by: Jovanni Sidhu MD on 02/21/2022 3:33 PM [facility] Approved by: Jovanni Sidhu MD on 02/21/2022 3:33 PM [facility] Station ID: [id number]
[2022-02-21 17:13] VITALS: BP 168/101
== END 2022-02-21 17:38 | disposition home or self-care (01) ==
LOC: EDUNIT# → ED 15:09
DX: R00.2 Palpitations (principal)
CPT/HCPCS: 36415; 80053; 83690; 83880; 84484; 85025; 93005; 99284

== ENCOUNTER 2022-02-26 09:53 | Outpatient (CLI) | payer MEDICARE | END 2022-02-26 09:54 | disposition EMS.NT | LOC: EMS 09:53 | DX: R00.2 Palpitations (principal) ==

== ENCOUNTER 2022-03-13 12:38 | Outpatient (CLI) | payer MEDICARE ==
--- NOTE | 2022-03-13 14:04 | XRAY Report ---
PROCEDURE: Lumbar Spine 2 View INDICATIONS: LOW BACK PAIN TECHNIQUE: 2 views of the lumbar spine were acquired. COMPARISON: None. FINDINGS: Bones: 5 [id number] vertebrae are present. Multilevel degenerative changes of the lumbar spine . Anterior wedging of T12. There is facet arthrosis in the lower lumbar spine. There is normal bony a lignment. No vertebral body compression fractures. No suspicious bony lesions. Soft tissues: Overlying bowel gas pattern is normal. No suspicious soft tissue calcifications. The aorta has atherosclerotic calcifications with a normal caliber. IMPRESSION: 1. Multilevel degenerative changes of the lumbar spine. 2. Anterior wedging of T12 consistent with compression fracture of indeterminate age. Reviewed by: Madan Reis on 03/13/2022 2:03 PM PST Approved by: Madan Reis on 03/13/2022 2:03 PM PST Station ID: [id number]
--- NOTE | 2022-03-13 16:13 | DEXA Report ---
PROCEDURE: Dexa Spine and/or Hip INDICATIONS: POST MENOPAUSAL STATE TECHNIQUE: Dual energy x-ray absorptiometry (DXA) was performed on a Ketsu System. Regions measur ed are the AP Spine, femoral neck, and if needed forearm. COMPARISON: None. FINDINGS: Lumbar Spine: Bone Mineral Density 0.523 g/cm/cm,T score -5.5, Left Femoral Neck: Bone Mineral Density 0.50 g/cm/cm, T score -3.8, Left Hip: Bone Mineral Density 0.51 g/cm/cm,T score -3.9, (T score greater or equal to -1.0: NORMAL) (T score from -1.1 to -2.4: OSTEOPENIA) (T score less than or equal to -2.5 to: OSTEOPOROSIS) Impression: Significantly decreased bone mineral density. Osteoporosis. Increased fracture risk. Patients with diagnosis of osteoporosis or osteopenia should have regular bone mineral density assess ment. For those eligible for Medicare, routine testing is allowed once every 2 years. Testing frequ ency can be increased for patients who have rapidly progressing disease or for those who are receivin g medical therapy to restore bone mass. Reviewed by: Jose Daniel Araujo MD on 03/13/2022 4:12 PM PST Approved by: Jose Daniel Araujo MD on 03/13/2022 4:12 PM PST Station ID: [id number]
--- NOTE | 2022-03-14 10:22 | XRAY Report ---
PROCEDURE: Thoracic Spine 2 View INDICATIONS: THORACIC BACK PAIN TECHNIQUE: 2 views of the thoracic spine were acquired. COMPARISON: None. FINDINGS: Bones: No fractures or dislocations. 2 mid thoracic vertebra demonstrate anterior wedging with asso ciated kyphosis. Rightward curvature of the thoracic spine with the rightward apex at T6 and a Burrell a ngle of 18 degrees. There are degenerative changes of the thoracic spine. No suspicious bony lesions. 12 pairs of ribs are noted, and appear intact where visualized. Soft tissues: No paravertebral stripe thickening. IMPRESSION: 1. 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 2. Anterior wedging of 2 mid thoracic vertebra. Reviewed by: Madan Reis on 03/14/2022 10:21 AM [facility] Approved by: Madan Reis on 03/14/2022 10:21 AM [facility] Station ID: [id number]
== END 2022-03-13 12:39 | disposition home or self-care (01) ==
LOC: DI 12:38
PROVIDERS: ATTEND Nurse Practitioner Family
DX: Z78.0 Asymptomatic menopausal state (principal); M81.0 Age-related osteoporosis without current pathological fracture; M54.6 Pain in thoracic spine; M47.816 Spondylosis without myelopathy or radiculopathy, lumbar region; M48.54XA Collapsed vertebra, not elsewhere classified, thoracic region, initial encounter for fracture